=== PATIENT | female | born 1990 | race Caucasian/White ===

== ENCOUNTER 2019-07-13 18:40 | Emergency (ER) | payer OTHER ==
[~2019-07-13] VITALS: Ht 157.5 cm; Wt 49.9 kg
--- NOTE | 2019-07-13 18:49 | NUR ---
PT REC'D TO ER VIA [facility] PT DIABETIC THTOUGHT HER BS WAS 31 IN THE FIELD IT WAS 89 IN REHAB FOR OPIATE ADDICTION AND ANXIEY . UA SENT TO LAB AWAITING EVALUATION BY ER PROVIDER.
--- NOTE | 2019-07-13 19:05 | NUR ---
SPOK[facility] WILL BE [employer]INE TENDER BY REHAB FACILITY STAFF.
--- NOTE | 2019-07-13 19:34 | NUR ---
Patient discharged to home in stable condition. Written and verbal after care instructions given. Patient verbalizes understanding of instruction.
[2019-07-13 19:35] VITALS: BP 121/85
--- NOTE | 2019-07-13 19:35 | NUR ---
pt was picked up by a ride from the facility
== END 2019-07-13 19:37 | disposition home or self-care (01) ==
LOC: ER 18:42
DX: F41.9 Anxiety disorder, unspecified (principal); F13.11 Sedative, hypnotic or anxiolytic abuse, in remission; R20.2 Paresthesia of skin; E11.9 Type 2 diabetes mellitus without complications; F32.9 Major depressive disorder, single episode, unspecified